=== PATIENT | female | born 1975 | race Caucasian/White ===

== ENCOUNTER 2019-01-08 16:44 | Observation (INO) ==
[2019-01-08] MEDS ORDERED: Ondansetron ODT 4 MG TAB.RAPDIS SL PRN (17:10)
[2019-01-08] MEDS ORDERED: Acetaminophen 325 MG TABLET PO PRN (17:10)
[2019-01-08] MEDS ORDERED: Naloxone 0.4 MG/ML INJ IVP PRN (17:10)
[2019-01-09] MEDS ORDERED: 0.9 % Sodium Chloride 1,000 ML IVC SCH (00:01)
[2019-01-09] MEDS: Clindamycin 600 MG/50 ML 600 MG/50 ML IV.SOLN IVPB SCH ×2 (00:01→07:44)
[2019-01-09] MEDS ORDERED: Ipratropium/Albuterol Neb 3 ML IH ONE (09:29)
[2019-01-09] MEDS ORDERED: Tdap (Boostrix) Vaccine 0.5 ML SYRINGE IM ONE (09:50)
[2019-01-09] MEDS ORDERED: *HR* FentaNYL (PF) 100 MCG/2 ML VIAL ONE (16:28)
[2019-01-09] MEDS ORDERED: *HR* Midazolam HCl 2 MG/2 ML VIAL ONE (16:28)
[2019-01-09] MEDS ORDERED: *HR* Propofol 200 MG/20 ML VIAL IVP ONE (16:28)
[2019-01-09] MEDS ORDERED: Dexamethasone 4 MG/ML VIAL ONE (17:16)
[2019-01-09] MEDS ORDERED: Lidocaine -MPF 2% 2 ML VIAL ONE (17:16)
[2019-01-09] MEDS ORDERED: Ondansetron 4 MG/2 ML VIAL ONE (17:16)
[2019-01-09] MEDS ORDERED: Ringers Solution, Lactated 1,000 ML ONE (17:53)
[2019-01-09] MEDS ORDERED: Clindamycin 600 MG/50 ML 600 MG/50 ML IV.SOLN IVPB SCH (19:00)
[2019-01-09 19:50] VITALS: BP 129/67
== END 2019-01-09 19:52 | disposition home or self-care (01) ==
LOC: 3ANU
PROVIDERS: ADMIT Surgery; ATTEND Surgery